=== PATIENT | male | born 1980 | race Caucasian/White ===

== ENCOUNTER 2017-08-17 14:23 | Emergency (ER) | payer SELFPAY ==
[~2017-08-17] VITALS: Ht 182.9 cm; Wt 122.5 kg
--- NOTE | 2017-08-17 15:35 | EKG ---
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
[2017-08-17] MEDS ORDERED: IV NORMAL SALINE 1000ML BAG 1,000 ML IV ONE (15:45)
[2017-08-17 15:51] LABS: BASO # 0.1 x10^3/uL (0.0-0.2); BASO % 1 % (0-3); EOS % 1 % (0-3); HEMATOCRIT 43.6 % (39.0-53.0); HEMOGLOBIN 14.8 g/dL (13.0-17.5); LYMPH # 1.3 x10^3/uL (1.0-4.8); LYMPH % 15 % (24-48); MEAN CORPUSCULAR HEMOGLOBIN 31 pg (25-35); MEAN CORPUSCULAR HGB CONC 34 g/dL (31-37); MEAN CORPUSCULAR VOLUME 92 fL (79-100); MONO % 6 % (0-9); NEUT % 77 % (31-73); PLATELET COUNT 182 x10^3/uL (140-400); RED BLOOD COUNT 4.75 x10^6/uL (4.30-5.70); RED CELL DISTRIBUTION WIDTH 12.7 % (11.5-14.5); WHITE BLOOD COUNT 8.4 x10^3/uL (4.0-11.0)
[2017-08-17 16:07] LABS: BILIRUBIN,URINE SMALL (NEG); GLUCOSE,URINE NEGATIVE (NEG); NITRITE,URINE NEGATIVE (NEG); PH,URINE 5.5; PROTEIN,URINE NEGATIVE (NEG-TRACE); UROBILINOGEN,URINE 0.2 mg/dL (0.2 mg/dL)
[2017-08-17 16:14] LABS: CREATININE 1.1 mg/dL (0.7-1.3); GFR 76.2; POTASSIUM 4.3 mmol/L (3.5-5.1)
[2017-08-17 16:21] LABS: ALBUMIN 3.3 g/dL (3.4-5.0); ALBUMIN/GLOBULIN RATIO 1.1 (1.0-1.7); TOTAL BILIRUBIN 0.3 mg/dL (0.2-1.0); TOTAL PROTEIN 6.3 g/dL (6.4-8.2)
[2017-08-17 16:39] LABS: BACTERIA,URINE 0 /HPF (0-FEW); RBC,URINE 0 /HPF (0-2); SQUAMOUS EPITHELIAL CELL,UR OCC /LPF; WBC,URINE OCC /HPF (0-4)
--- NOTE | 2017-08-17 17:13 | PHYS DOC ---
Past Medical History Past Medical History: GERD, Other Additional Past Medical Histor: carpal tunnel Past Surgical History: Tonsillectomy Alcohol Use: Occasionally Drug Use: None Adult General Chief Complaint Chief Complaint: TREMORS HPI HPI Patient is a 37 year old gentleman who presents to the ER today secondary to feeling nauseous lightheaded and shaking approximately 2 PM. Patient reports that he had 8 g ofgrayden which is a medication that's [id number] that he reports is used for stress relief. Patient reports she took that approximately 8 AM. Patient denies any retention diabetes liver longer kidney problems. Patient denies any surgeries. Denies any coronary disease or strokes. Patient admits to tobacco, denies drugs or alcohol. Patient has no known drug allergies. Patient denies any fevers shakes chills vomiting or diarrhea. Patient reports she's had a cough for one to 2 days. Patient reports she been nauseous for several days. Patient denies any chest pain or shortness of breath. Patient has any abdominal pain. Patient has any weakness his upper or lower extremities. Review of systems: Constitutional: Denies fever or chills Eyes: Denies change in visual acuity, redness, or eye pain HENT: Denies nasal congestion or sore throat All other review systems are negative except as documented in the history of present illness portion. Physical exam: Constitutional: Well developed, well nourished, no acute distress, non-toxic appearance. HENT: Normocephalic, atraumatic, bilateral external ears normal, oropharynx moist, no oral exudates, nose normal. Eyes: PERRLA, EOMI, conjunctiva normal, no discharge. Neck: Normal range of motion, no tenderness, supple, no stridor. Cardiovascular:Heart rate regular rhythm, Lungs & Thorax: Bilateral breath sounds clear to auscultation Abdomen: Bowel sounds normal, soft, no tenderness, no masses, no pulsatile masses. Skin: Warm, dry, no erythema, no rash. Back: No tenderness, no CVA tenderness. Extremities: No tenderness, no cyanosis, no clubbing, ROM intact, no edema. Neurologic: Alert and oriented X 3, normal motor function, normal sensory function, no focal deficits noted. Psychologic: Affect normal, judgement normal, mood normal. EKG revealed normal sinus rhythm at [address]-T wave abnormalities. No evidence of ST elevation NM. Assessment and plan 37-year-old gentleman presents here today with nausea lightheaded and shaking approximately 2 PM today. Patient currently reports he is asymptomatic and feels much better. Patient's workup in the ER is unremarkable. Patient had a normal CBC CMP and chemistry. Patient's EKG was unremarkable. Patient has been given a liter of normal saline the ER has been observed for approximately 2-3 hours in the ER without any progression in his symptoms. Patient reports he feels much better and feels very comfortable with the plan to be discharged home with follow-up with primary care physician. There is no further indication for inpatient or ER evaluation of the patient's symptoms as he does currently a symptomatically vital signs are stable in his workup thus far has been unremarkable. Current Medications Current Medications Current Medications Medications (Trade) Dose Ordered Sig/Ashlie Start Time Stop Time Status Last Admin Dose Admin Sodium Chloride 1,000 ml @ 1,000 mls/hr 1X ONCE 08/17/17 15:45 08/17/17 16:44 DC 08/17/17 15:47 1,000 MLS/HR Allergies Allergies Allergies Coded Allergies Type Severity Reaction Last Updated Verified tomato Allergy Severe swelling 11/13/14 Yes Sulfa (Sulfonamide Antibiotics) Allergy Unknown 08/17/17 Yes Uncoded Allergies Type Severity Reaction Last Updated Verified fruit Allergy Severe swelling, hives 11/13/14 potatos Allergy Severe swelling 11/13/14 Current Patient Data Vital Signs Vital Signs Date Time Temp Pulse Resp B/P (MAP) Pulse Ox O2 Delivery O2 Flow Rate FiO2 08/17/17 15:09 98.6 78 18 132/76 (94) 96 Room Air 98.6 Lab Values Laboratory Tests Test 08/17/17 15:40 08/17/17 16:00 White Blood Count 8.4 x10^3/uL (4.0-11.0) Red Blood Count 4.75 x10^6/uL (4.30-5.70) Hemoglobin 14.8 g/dL (13.0-17.5) Hematocrit 43.6 % (39.0-53.0) Mean Corpuscular Volume 92 fL (79-100) Mean Corpuscular Hemoglobin 31 pg (25-35) Mean Corpuscular Hemoglobin Concent 34 g/dL (31-37) Red Cell Distribution Width 12.7 % (11.5-14.5) Platelet Count 182 x10^3/uL (140-400) Neutrophils (%) (Auto) 77 % (31-73) H Lymphocytes (%) (Auto) 15 % (24-48) L Monocytes (%) (Auto) 6 % (0-9) Eosinophils (%) (Auto) 1 % (0-3) Basophils (%) (Auto) 1 % (0-3) Neutrophils # (Auto) 6.5 x10^3uL (1.8-7.7) Lymphocytes # (Auto) 1.3 x10^3/uL (1.0-4.8) Monocytes # (Auto) 0.5 x10^3/uL (0.0-1.1) Eosinophils # (Auto) 0.1 x10^3/uL (0.0-0.7) Basophils # (Auto) 0.1 x10^3/uL (0.0-0.2) Sodium Level 141 mmol/L (136-145) Potassium Level 4.3 mmol/L (3.5-5.1) Chloride Level 106 mmol/L (98-107) Carbon Dioxide Level 27 mmol/L (21-32) Anion Gap 8 (6-14) Blood Urea Nitrogen 12 mg/dL (8-26) Creatinine 1.1 mg/dL (0.7-1.3) Estimated GFR (Cockcroft-Gault) 76.2 BUN/Creatinine Ratio 11 (6-20) Glucose Level 105 mg/dL (70-99) H Calcium Level 8.0 mg/dL (8.5-10.1) L Total Bilirubin 0.3 mg/dL (0.2-1.0) Aspartate Amino Transferase (AST) 22 U/L (15-37) Alanine Aminotransferase (ALT) 44 U/L (16-63) Alkaline Phosphatase 61 U/L (46-116) Total Protein 6.3 g/dL (6.4-8.2) L Albumin 3.3 g/dL (3.4-5.0) L Albumin/Globulin Ratio 1.1 (1.0-1.7) Urine Color Yellow Urine Clarity Clear Urine pH 5.5 Urine Specific [place] 1.025 Urine Protein Negative mg/dL (NEG-TRACE) Urine Glucose (UA) Negative mg/dL (NEG) Urine Ketones (Stick) Negative mg/dL (NEG) Urine Blood Negative (NEG) Urine Nitrite Negative (NEG) Urine Bilirubin Small (NEG) Urine Urobilinogen Dipstick 0.2 mg/dL (0.2 mg/dL) Urine Leukocyte Esterase Negative (NEG) Urine RBC 0 /HPF (0-2) Urine WBC Occ /HPF (0-4) Urine Squamous Epithelial Cells Occ /LPF Urine Bacteria 0 /HPF (0-FEW) Urine Mucus Mod /LPF Laboratory Tests 08/17/17 15:40 Laboratory Tests 08/17/17 15:40 EKG EKG [] Radiology/Procedures Radiology/Procedures [] Course & Med Decision Making Course & Med Decision Making Pertinent Labs and Imaging studies reviewed. (See chart for details) [] Dragon Disclaimer Dragon Disclaimer This electronic medical record was generated, in whole or in part, using a voice recognition dictation system. Departure Departure Impression: Primary Impression: Nausea Additional Impression: Tremor Disposition: 01 HOME, SELF-CARE Condition: IMPROVED Referrals: MERI JOYA (PCP) Patient Instructions: Medical Screening Exam Problem Qualifiers NEFTALI VERDE MD Aug 17, 2017 17:13
[2017-08-17 17:24] VITALS: BP 122/64
== END 2017-08-17 17:27 | disposition home or self-care (01) ==
LOC: ER 14:23
DX: R11.0 Nausea (principal); R42 Dizziness and giddiness; R25.1 Tremor, unspecified; K21.9 Gastro-esophageal reflux disease without esophagitis; Z88.2 Allergy status to sulfonamides; Z91.018 Allergy to other foods
CPT/HCPCS: 36415; 80053; 81001; 85025; 93005; 96360; 99285; J7030

== ENCOUNTER 2019-09-14 19:10 | Emergency (ER) | payer BC ==
[~2019-09-14] VITALS: Ht 182.9 cm; Wt 122.5 kg
[2019-09-14 19:30] VITALS: BP 162/110
[2019-09-14] MEDS ORDERED: PRED20TA PO (20:15)
[2019-09-14] MEDS ORDERED: KETOROLAC 30 MG/ML VIAL. IM ONE (20:15)
[2019-09-14] MEDS ORDERED: NAPR-695 PO (20:15)
[2019-09-14] MEDS ORDERED: DEXAMETHASONE 4 MG TABLET PO ONE (20:15)
[2019-09-14] MEDS ORDERED: DIAZ5TAB PO (20:15)
--- NOTE | 2019-09-14 20:16 | PHYS DOC ---
Past Medical History Past Medical History: GERD, Other Additional Past Medical Histor: carpal tunnel Past Surgical History: No Surgical History, Tonsillectomy Smoking: Cigarettes, Less than 1pk/day Alcohol Use: Occasionally Drug Use: None Adult General Chief Complaint Chief Complaint: SHOULDER INJURY HPI HPI Mr. Cai is a 39yo M w/ no significant PMH who presents with 2 days of tight, cramping of his neck that causes intermittent electric shocks radiating through his back, b/l LE, and b/l feet. Has been experiencing neck tension for the past 6 weeks. 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 Has used Biofreeze and ibuprofen, both which have helped. Neck movements worsen the cramping pain after rest. States he has a history of b/l UE numbness and tingling, secondary to what he believed was carpal tunnel syndrome but stated that those sensations are experienced in entirety of b/l UE. Review of Systems Review of Systems Constitutional: Denies fever or chills Eyes: Denies redness or eye pain HENT: Denies nasal congestion or sore throat Respiratory: Denies cough or shortness of breath Cardiovascular: Denies chest pain or palpitations GI: Denies abdominal pain, nausea, or vomiting : Denies dysuria or hematuria Musculoskeletal: Reports severe neck pain. Denies upper or lower back pain or joint pain. Integument: Denies rash or skin lesions Neurologic: Reports electric shocks from neck to toes. Denies headache, focal weakness, numbness or tingling. Complete systems were reviewed and found to be within normal limits, except as documented in this note. Current Medications Current Medications Current Medications Medications (Trade) Dose Ordered Sig/Ashlie Start Time Stop Time Status Last Admin Dose Admin Dexamethasone (Decadron) 10 mg 1X ONCE 09/14/19 20:15 09/14/19 20:19 DC 09/14/19 20:24 10 MG Ketorolac Tromethamine (Toradol 30mg Vial) 30 mg 1X ONCE 09/14/19 20:15 09/14/19 20:19 DC 09/14/19 20:24 30 MG Allergies Allergies Allergies Coded Allergies Type Severity Reaction Last Updated Verified tomato Allergy Severe swelling 11/13/14 Yes Sulfa (Sulfonamide Antibiotics) Allergy Unknown 08/17/17 Yes Uncoded Allergies Type Severity Reaction Last Updated Verified fruit Allergy Severe swelling, hives 11/13/14 potatos Allergy Severe swelling 11/13/14 Physical Exam Physical Exam Constitutional: Well developed, well nourished, mild acute distress, non-toxic appearance HENT: Normocephalic, atraumatic, oropharynx moist Eyes: PERRL, EOMI, conjunctiva normal, no discharge Neck: Restricted range of motion in all directions. No tenderness. Contracted m usculature. Cardiovascular: heart regular rate and rhythm w/o gallops, rubs, or murmurs. b/l UE radial pulses intact 2/4. Lungs & Thorax: Bilateral breath sounds clear to auscultation, no wheezing Skin: Warm, dry, no erythema, no rash Extremities: No tenderness, ROM intact, no edema Neurologic: Alert and oriented X 3, normal motor function, normal sensory function, no focal deficits noted Psychologic: Affect normal, judgement normal Current Patient Data Vital Signs Vital Signs Date Time Temp Pulse Resp B/P (MAP) Pulse Ox O2 Delivery O2 Flow Rate FiO2 09/14/19 19:30 98.5 96 17 162/110 (127) 99 98.5 EKG EKG [] Radiology/Procedures Radiology/Procedures [] Course & Med Decision Making Course & Med Decision Making Mr. Cai presented w/ neck pain with history of present illness and physical exam concerning for cervical radiculopathy. Steroid and ketorolac provided. Prescription for Valium provided to patient. Referred to PM&R for further evaluation and treatment. Patient stable for discharge with outpatient follow-up with PCP. Discussed findings and plan with patient, who acknowledges understanding and agreement. Dragon Disclaimer Dragon Disclaimer This electronic medical record was generated, in whole or in part, using a voice recognition dictation system. Departure Departure Impression: Primary Impression: Cervical radiculopathy Disposition: 01 HOME, SELF-CARE Condition: STABLE Referrals: NO PCP (PCP) ADRIANA MARIE MD Patient Instructions: Cervical Radiculopathy, Eako-hj-Bsuk Scripts Diazepam (VALIUM) 5 Mg Tablet 5 MG PO Q8HRS PRN for MUSCLE SPASMS, #14 TAB Prov: EDSON GUTIERREZ DO 09/14/19 Naproxen (NAPROXEN) 375 Mg Tablet 375 MG PO TID PRN PRN for PAIN, #30 TAB Prov: EDSON GUTIERREZ DO 09/14/19 Prednisone (PREDNISONE) 20 Mg Tablet 2 TAB PO DAILY, #8 TAB Prov: EDSON GUTIERREZ DO 09/14/19 EDSON GUTIERREZ DO Sep 14, 2019 20:15
== END 2019-09-14 20:54 | disposition home or self-care (01) ==
LOC: ER 19:10
DX: M54.12 Radiculopathy, cervical region (principal); K21.9 Gastro-esophageal reflux disease without esophagitis; F17.210 Nicotine dependence, cigarettes, uncomplicated; Z90.89 Acquired absence of other organs; Z88.2 Allergy status to sulfonamides; Z91.018 Allergy to other foods
CPT/HCPCS: 96372; 99283; J1885; J8540

== ENCOUNTER 2020-04-08 01:55 | Emergency (ER) | payer SELFPAY ==
[~2020-04-08] VITALS: Ht 180.3 cm; Wt 105.0 kg
[~2020-04-08 01:55] MED LIST: DIAZ5TAB PO; LEVO750T31 PO; NAPR-695 PO; PRED20TA PO; TRAM50TA PO
[2020-04-08 02:25] LABS: BASO # 0.1 x10^3/uL (0.0-0.2); BASO % 1 % (0-3); EOS # 0.2 x10^3/uL (0.0-0.7); EOS % 3 % (0-3); HEMATOCRIT 43.6 % (39.0-53.0); HEMOGLOBIN 15.1 g/dL (13.0-17.5); LYMPH # 2.1 x10^3/uL (1.0-4.8); LYMPH % 30 % (24-48); MEAN CORPUSCULAR HEMOGLOBIN 32 pg (25-35); MEAN CORPUSCULAR HGB CONC 35 g/dL (31-37); MEAN CORPUSCULAR VOLUME 93 fL (79-100); MONO # 0.5 x10^3/uL (0.0-1.1); MONO % 6 % (0-9); NEUT # 4.3 x10^3/uL (1.8-7.7); NEUT % 60 % (31-73); PLATELET COUNT 175 x10^3/uL (140-400); RED BLOOD COUNT 4.69 x10^6/uL (4.30-5.70); RED CELL DISTRIBUTION WIDTH 13.7 % (11.5-14.5); WHITE BLOOD COUNT 7.2 x10^3/uL (4.0-11.0)
[2020-04-08 02:33] LABS: CALCIUM 7.9 mg/dL (8.5-10.1); CREATININE 1.5 mg/dL (0.7-1.3); GFR 52.7; POTASSIUM 4.1 mmol/L (3.5-5.1)
[2020-04-08 02:38] LABS: ALBUMIN 3.6 g/dL (3.4-5.0); ALBUMIN/GLOBULIN RATIO 1.1 (1.0-1.7); TOTAL BILIRUBIN 0.4 mg/dL (0.2-1.0); TOTAL PROTEIN 6.8 g/dL (6.4-8.2)
[2020-04-08] MEDS ORDERED: APIX5TAB PO (03:04)
--- NOTE | 2020-04-08 03:04 | PHYS DOC ---
Past Medical History Past Medical History: GERD, Other Additional Past Medical Histor: carpal tunnel; Past Surgical History: Tonsillectomy Additional Past Surgical Histo: DVT filter placement; C-3 disk repair Smoking Status: Current Every Day Smoker Alcohol Use: Occasionally Drug Use: None General Adult EDM: Chief Complaint: LOWER EXTREMITY SWELLING HPI: HPI: Patient is a 39 year old male who presents with report of left lower leg swelling. Patient indicates that he has a history of DVT in that leg in the past and had taken Eliquis for about a month and a half. Patient states that he did not get back and to get medication refilled and had stopped taking it. He denies any chest pain or shortness of breath. Patient does indicate that he had gone in for surgery and had an IVC filter placed prior to surgery. He states that the IVC filter still in place. He states that the first time he had the blood clot, he had leg pain but currently he denies any leg pain. He states that just swollen. [] Review of Systems: Review of Systems: Constitutional: Denies fever or chills. [] Respiratory: Denies cough or shortness of breath. [] Cardiovascular: Denies chest pain or edema. [] Musculoskeletal: Positive left lower leg swelling. [] Integument: Denies rash. [] Neurologic: Denies headache, focal weakness or sensory changes. [] A full 10 point review of systems has been reviewed and is otherwise negative. Heart Score: Risk Factors: Risk Factors: DM, Current or recent (<one month) smoker, HTN, HLP, family history of CAD, obesity. Risk Scores: Score 0 - 3: 2.5% MACE over next 6 weeks - Discharge Home Score 4 - 6: 20.3% MACE over next 6 weeks - Admit for Clinical Observation Score 7 - 10: 72.7% MACE over next 6 weeks - Early Invasive Strategies Allergies: Allergies: Allergies Coded Allergies Type Severity Reaction Last Updated Verified tomato Allergy Severe swelling 11/13/14 Yes Sulfa (Sulfonamide Antibiotics) Allergy Unknown 08/17/17 Yes Uncoded Allergies Type Severity Reaction Last Updated Verified fruit Allergy Severe swelling, hives 11/13/14 potatos Allergy Severe swelling 11/13/14 Physical Exam: PE: Constitutional: Well developed, well nourished, no acute distress, non-toxic appearance. [] HENT: Normocephalic, atraumatic, bilateral external ears normal, oropharynx moist, no oral exudates, nose normal. [] Eyes: PERRLA, EOMI, conjunctiva normal, no discharge. [] Neck: Normal range of motion, no tenderness, supple, no stridor. [] Cardiovascular: Regular rate and rhythm [] Lungs & Thorax: Bilateral breath sounds clear to auscultation [] Abdomen: Bowel sounds normal, soft, no tenderness, no masses, no pulsatile masses. [] Skin: Warm, dry, no erythema, no rash. [] Extremities: No tenderness, no cyanosis, no clubbing, ROM intact, with left lower extremity pitting edema. [] Neurologic: Alert and oriented X 3, no focal deficits noted. [] Current Patient Data: Labs: Laboratory Tests Test 04/08/20 02:10 White Blood Count 7.2 x10^3/uL (4.0-11.0) Red Blood Count 4.69 x10^6/uL (4.30-5.70) Hemoglobin 15.1 g/dL (13.0-17.5) Hematocrit 43.6 % (39.0-53.0) Mean Corpuscular Volume 93 fL (79-100) Mean Corpuscular Hemoglobin 32 pg (25-35) Mean Corpuscular Hemoglobin Concent 35 g/dL (31-37) Red Cell Distribution Width 13.7 % (11.5-14.5) Platelet Count 175 x10^3/uL (140-400) Neutrophils (%) (Auto) 60 % (31-73) Lymphocytes (%) (Auto) 30 % (24-48) Monocytes (%) (Auto) 6 % (0-9) Eosinophils (%) (Auto) 3 % (0-3) Basophils (%) (Auto) 1 % (0-3) Neutrophils # (Auto) 4.3 x10^3/uL (1.8-7.7) Lymphocytes # (Auto) 2.1 x10^3/uL (1.0-4.8) Monocytes # (Auto) 0.5 x10^3/uL (0.0-1.1) Eosinophils # (Auto) 0.2 x10^3/uL (0.0-0.7) Basophils # (Auto) 0.1 x10^3/uL (0.0-0.2) D-Dimer (Patricia) 0.32 ug/mlFEU (0.00-0.50) Sodium Level 140 mmol/L (136-145) Potassium Level 4.1 mmol/L (3.5-5.1) Chloride Level 105 mmol/L (98-107) Carbon Dioxide Level 26 mmol/L (21-32) Anion Gap 9 (6-14) Blood Urea Nitrogen 20 mg/dL (8-26) Creatinine 1.5 mg/dL (0.7-1.3) H Estimated GFR (Cockcroft-Gault) 52.7 BUN/Creatinine Ratio 13 (6-20) Glucose Level 102 mg/dL (70-99) H Calcium Level 7.9 mg/dL (8.5-10.1) L Total Bilirubin 0.4 mg/dL (0.2-1.0) Aspartate Amino Transferase (AST) 16 U/L (15-37) Alanine Aminotransferase (ALT) 30 U/L (16-63) Alkaline Phosphatase 81 U/L (46-116) Total Protein 6.8 g/dL (6.4-8.2) Albumin 3.6 g/dL (3.4-5.0) Albumin/Globulin Ratio 1.1 (1.0-1.7) Laboratory Tests 04/08/20 02:10 Laboratory Tests 04/08/20 02:10 Vital Signs: Vital Signs Date Time Temp Pulse Resp B/P (MAP) Pulse Ox O2 Delivery O2 Flow Rate FiO2 04/08/20 02:20 98.0 72 18 142/86 (104) 98 Room Air 98.0 EKG: EKG: [] Radiology/Procedures: Radiology/Procedures: [] Course & Med Decision Making: Course & Med Decision Making Pertinent Labs and Imaging studies reviewed. (See chart for details) [] Dragon Disclaimer: Dragon Disclaimer: This electronic medical record was generated, in whole or in part, using a voice recognition dictation system. Departure Departure Impression: Primary Impression: DVT (deep venous thrombosis) Qualified Codes: I82.402 - Acute embolism and thrombosis of unspecified deep veins of left lower extremity Disposition: HOME, SELF-CARE Condition: STABLE Referrals: NO PCP (PCP) Patient Instructions: Deep Vein Thrombosis Scripts Apixaban (ELIQUIS) 5 Mg Tablet 5 MG PO BID, #74 TAB Take 10 mg by mouth twice a day for the first 7 days and then 1 tablet by mouth twice a day after that. Prov: PAZ GASTELUM Jr. DO 04/08/20 PAZ GASTELUM Jr. DO April 08, 2020 03:04
--- NOTE | 2020-04-08 03:18 | RAD ---
Left lower extremity venous duplex study 04/08/2020 Clinical History: Left lower leg swelling. Technique: Using a combination of real time ultrasound imaging and color-flow and pulse Doppler imaging techniques along with graded compression and augmentation, duplex evaluation of the deep venous system of the left lower extremity was performed. Multiple images were obtained. Findings: Echogenic thrombus consistent with DVT is seen involving one of the posterior tibial veins within the left calf extending to involve the left popliteal vein. The left superficial femoral vein is duplicated. The DVT extends to involve one of the duplicated superficial femoral veins extending to its proximal portion. The left common femoral vein is patent. IMPRESSION: DVT is seen involving the left lower extremity as discussed above. Electronically signed by: Reggie Oseguera MD (04/08/2020 3:15 AM) [id number]
[2020-04-08 03:48] VITALS: BP 133/78
== END 2020-04-08 03:50 | disposition home or self-care (01) ==
LOC: ER 01:55
DX: I82.432 Acute embolism and thrombosis of left popliteal vein (principal); K21.9 Gastro-esophageal reflux disease without esophagitis; F17.200 Nicotine dependence, unspecified, uncomplicated; Z88.2 Allergy status to sulfonamides; Z91.018 Allergy to other foods
CPT/HCPCS: 36415; 80053; 85025; 85379; 93971; 96372; 99284; J1650